=== PATIENT | female | born 1960 | race Caucasian/White ===

== ENCOUNTER → 2019-10-11 10:12 | Outpatient (BNVA) | payer MEDICARE, SELFPAY | PROVIDERS: Family Provider Nurse Practitioner; Visit Provider Nurse Practitioner Family | DX: R05 Cough (principal); J98.8 Other specified respiratory disorders; I70.90 Unspecified atherosclerosis | CPT/HCPCS: 71046; 85025 ==

== ENCOUNTER → 2020-12-03 13:35 | Outpatient (BNVA) | payer MEDICARE, SELFPAY | PROVIDERS: Family Provider Nurse Practitioner; PCP Nurse Practitioner Family; Referring Provider Nurse Practitioner Family; Visit Provider Internal Medicine Cardiovascular Disease | DX: I10 Essential (primary) hypertension (principal) | CPT/HCPCS: 80048 ==

== ENCOUNTER 2021-01-05 13:28 | Outpatient (CLI) | payer MEDICARE, SELFPAY ==
--- NOTE | 2021-01-05 14:00 | MM_ITS ---
WS: [id number] BILATERAL SCREENING DIGITAL MAMMOGRAM WITH CAD HISTORY: Z12.39 - Encounter for other screening for malignant neoplasm of breast COMPARISON: 02/21/2017 and 05/23/2015 Bilateral CC and MLO views submitted. Computer aided detection analyzed. Breast composition: There are scattered areas of fibroglandular density. No suspicious masses, microc alcifications or architectural distortion. MM/[place] [id number] IMPRESSION: BI-RADS: 1-Negative FOLLOW UP: 1 Year Follow-up
== END 2021-01-05 13:29 | disposition home or self-care (01) ==
LOC: RADSHAW 13:33
PROVIDERS: Family Provider Nurse Practitioner; PCP Nurse Practitioner Family; Visit Provider Nurse Practitioner Family
DX: Z12.31 Encounter for screening mammogram for malignant neoplasm of breast (principal)
CPT/HCPCS: 77067

== ENCOUNTER → 2021-01-19 15:54 | Outpatient (BNVA) | payer MEDICARE, SELFPAY | PROVIDERS: Family Provider Nurse Practitioner; PCP Nurse Practitioner Family; Visit Provider Nurse Practitioner Family | DX: R35.0 Frequency of micturition (principal) | CPT/HCPCS: 81000; 87086 ==

== ENCOUNTER 2021-01-27 08:18 | Outpatient (CLI) | payer MEDICARE, SELFPAY ==
--- NOTE | 2021-01-27 08:25 | USCV_ITS ---
Betty Cardenas Age: 60 Gender: F : 1960 Exam Date: 01/27/2021 08:46 Ordering Phys: Helio Recinos MD ([email or web address]) Technologist: Exam Location: [facility] – [place] Indication: htn Aortic Velocity @ SMA (cm/s) 61.1 RIGHT KIDNEY LEFT KIDNEY Velocity (cm/s) Velocity (cm/s) Sys/Singleton Sys/Singleton Resistive Index Resistive Index 127.6 / 40.9 0.68 Proximal Renal Artery 93.4 / 31.1 0.67 126.0 / 45.7 0.64 Mid Renal Artery 73.8 / 22.9 0.69 129.1 / 37.8 0.71 Distal Renal Artery 68.3 / 27.0 0.60 73.8 / 17.0 0.77 Hilar 82.5 / 27.0 0.67 51.7 / 17.8 0.66 Upper Pole 32.0 / 11.0 0.66 30.9 / 9.9 0.68 Mid Pole 41.3 / 11.6 0.72 51.8 / 19.8 0.62 Lower Pole 38.6 / 12.7 0.67 2.10 Renal Aortic Ratio 1.53 Accleration Index (cm/sec2) 542.00 Hilar 686.00 271.00 Upper Pole 172.00 186.00 Mid Pole 220.00 368.00 Lower Pole 223.00 103.6 Kidney Length (mm) 100.1 FINDINGS Normal renal arterial Doppler flow velocities. Normal renal aortic ratios Normal kidney dimensions Reduced acceleration indicis bilaterally CONCLUSIONS 1. No significant renal artery stenosis, based on the Doppler flow velocities and ratios. 2.The abnormal acceleration indicis suggesting renal artery stenosis could be a technical error. 3. Normal kidney dimensions Consider CTA or MRA to further evaluate the renal arteries, if clinically indicated Dr Charo Simpson MD [facility] (Electronically Signed) Final Date: 27 January 2021 12:45 S
--- NOTE | 2021-01-27 08:31 | USCV_ITS ---
Betty Cardenas Age: 60 Gender: F : 1960 Exam Date: 01/27/2021 09:04 Ordering Phys: Helio Recinos MD ([email or web address]) Technologist: Exam Location: [facility] [place] Indication: HTN BP: 150 / 100 HR: 62 Rhythm: Sinus Technical Quality: Adequate MEASUREMENTS (Male / Female) Normal Values 2D ECHO LV Diastolic Diameter PLAX 2.8 cm 4.2 - 5.9 / 3.9 - 5.3 cm LV Systolic Diameter PLAX 1.9 cm IVS Diastolic Thickness 1.3 cm 0.6 - 1.0 / 0.6 - 0.9 cm IVS Systolic Thickness 1.8 cm LVPW Diastolic Thickness 1.3 cm 0.6 - 1.0 / 0.6 - 0.9 cm LVPW Systolic Thickness 1.3 cm LVOT Diameter 2.0 cm LV Ejection Fraction 2D Teich 61.1 % LV Ejection Fraction MOD 2C 75.6 % LV Ejection Fraction 2C AL 74.7 % LA Diameter 3.0 cm LA Width 3.3 cm LA Height 3.9 cm RA Width 2.7 cm RA Height 4.1 cm Aorta at Sinotubular Diameter 2.2 cm DOPPLER AV Peak Velocity 108.0 cm/s LVOT Peak Velocity 77.0 cm/s AV Area Cont Eq vti 2.3 cm squared AV Area Cont Eq pk 2.3 cm squared MV Area PHT 5.0 cm squared Mitral E to A Ratio 0.9 MV E' Velocity 35.0 cm/s Mitral E to MV E' Ratio 7.7 Mitral E to LV E' Lateral Ratio 9.1 Mitral E to LV E' Septal Ratio 6.6 TR Peak Velocity 173.0 cm/s TR Peak Gradient 12.0 mmHg TV Peak E Velocity 87.0 cm/s Right Atrial Pressure 3.0 mmHg Pulmonary Artery Systolic Pressu 15.0 mmHg PV Peak Velocity 48.0 cm/s FINDINGS Left Ventricle Normal left ventricular size and systolic function, EF 73 %. Mild left ventricular hypertrophy. No regional wall motion abnormalities. Grade I/IV diastolic dysfunction (abnormal relaxation filling pattern), normal to mildly elevated filling pressures. Right Ventricle The right ventricle is normal in size and function. Right Atrium The right atrium is normal in size. Left Atrium The left atrium is normal in size. Mitral Valve Thickened mitral valve. Mild mitral annular calcification. Mild mitral valve regurgitation. Aortic Valve Minimally thickened Tricuspid Valve No gross abnormalities noted Pulmonic Valve Pulmonic valve not well visualized. Pericardium Normal pericardium without effusion. Aorta Normal ascending aorta dimension. CONCLUSIONS Normal left ventricular size and systolic function, EF 73 %. Mild left ventricular hypertrophy. No regional wall motion abnormalities. Grade I/IV diastolic dysfunction (abnormal relaxation filling pattern), normal to mildly elevated filling pressures. Minimally thickened aortic and mitral valves. Mild mitral annular calcification. Mild mitral valve regurgitation. There is no pericardial effusion. There are no intracardiac masses. No previous study is available for comparison. Dr Charo Simpson MD [facility] (Electronically Signed) Final Date: 27 January 2021 10:05 S
== END 2021-01-27 08:19 | disposition home or self-care (01) ==
LOC: RAD 08:22
PROVIDERS: PCP Nurse Practitioner Family; Visit Provider Internal Medicine Cardiovascular Disease
DX: I10 Essential (primary) hypertension (principal); I08.0 Rheumatic disorders of both mitral and aortic valves; R93.41 Abnormal radiologic findings on diagnostic imaging of renal pelvis, ureter, or bladder
CPT/HCPCS: 93306; 93975

== ENCOUNTER 2021-03-16 20:00 | Outpatient (CLI) | payer MEDICARE, SELFPAY | END 2021-03-16 20:01 | disposition home or self-care (01) | LOC: SLEEP 03-17 10:31 | PROVIDERS: PCP Nurse Practitioner Family; Visit Provider Anesthesiology Pain Medicine | DX: G47.33 Obstructive sleep apnea (adult) (pediatric) (principal) | CPT/HCPCS: 95810 ==

== ENCOUNTER → 2021-10-20 11:22 | Outpatient (BNVA) | payer MEDICARE, SELFPAY | PROVIDERS: PCP Nurse Practitioner Family; Visit Provider Nurse Practitioner Family | DX: I10 Essential (primary) hypertension (principal); E03.8 Other specified hypothyroidism | CPT/HCPCS: 80053; 80061; 82306; 82607; 83721; 84443; 85025 ==

== ENCOUNTER → 2022-03-24 11:59 | Outpatient (BNVA) | payer MEDICARE, SELFPAY | PROVIDERS: PCP Nurse Practitioner Family; Visit Provider Nurse Practitioner Family | DX: M54.9 Dorsalgia, unspecified (principal); R10.9 Unspecified abdominal pain; R31.9 Hematuria, unspecified | CPT/HCPCS: 74018; 80053; 81000; 85025 ==

== ENCOUNTER 2022-04-24 08:01 | Emergency (ER) | payer MEDICARE, SELFPAY ==
[2022-04-24 08:05] VITALS: BP 177/117; PULSE 94; RESP 16; TEMP 36.7; O2SAT 97; BMI 26.9
--- NOTE | 2022-04-24 08:05 | W.ED.NAVMDI ---
HPI - Nausea/Vomiting/Diarrhea General: Chief complaint: Nausea/Vomiting/Diarrhea Stated complaint: throwing up, really sick Time Seen by Provider: 04/24/22 08:05 Source: patient Mode of arrival: ambulatory History of Present Illness: 61-year-old female who presents emergency room with nausea and vomiting. She denies any hematemesis or coffee-ground emesis does complain of intermittent low-grade fever. The worst of the nausea began last night and is progressively worsened throughout the night till this morning. She reports a severe headache and a cough with it as well. It was preceded by rhinorrhea and cold-like symptoms. MD elicited complaint: nausea and vomiting Onset (ago): day(s) (2) Description of vomiting: watery and bilious Associated nausea: Yes Associated abdominal pain: No (Abdominal wall pain after vomiting in the epigastric) Severity: mild Quality: aching (Abdominal wall pain) Exacerbating factors: vomiting Relieving factors: none Associated symtoms: Reports anorexia, malaise, nausea and weakness; Denies altered mental status, anxiety, bloating, change in vision, chest pain, cough, diaphoresis, decreased urine output, dizziness, dysuria, epistaxis, fatigue, fecal incontinence, fevers/chills, headache(s), myalgias, numbness, palpitations, rash, short of breath, syncope, tenesmus or tinnitus Review of Systems Const: Reports: malaise; Denies: fever(s), chills, fatigue or diaphoresis Eyes: Denies: change in vision ENMT: Denies: tinnitus or epistaxis Card: Denies: chest pain, palpitations or syncope GI: Reports: abdominal pain (Epigastric abdominal wall pain), nausea and vomiting; Denies: hematemesis, bloating or fecal incontinence : Denies: flank pain, difficulty voiding, dysuria, urinary frequency or urinary urgency Neuro: Denies: headache(s) or dizziness Psych: Denies: anxiety PFSH ED PFSH: Medical History Adult onset hypothyroidism Depression Diastolic dysfunction Essential hypertension Patient has uncontrolled hypertension GERD (gastroesophageal reflux disease) Surgical History H/O repair of right rotator cuff (~06/2014) History of section History of tubal ligation Family History Other CAD (coronary artery disease) Cancer Chronic kidney disease (CKD) Dementia Diabetes Hyperlipidemia Hypertension Stroke Denies family history of Clotting disorder Anesthesia complication Bleeding disorder Family history of premature coronary artery disease Lung disease Social History Smoking and tobacco status: never smoked Second hand smoke exposure: No Smoking risk assessment/counseling performed?: No Alcohol intake: never Desire information about alcohol rehabilitation?: No Counseling given: No Desire information about substance/drug rehabilitation?: No Counseling given: No Adopted: No Caregiver/support person: No Lives independently: Yes Household members: spouse Housing: House Marital status: service: No History of recent travel: No Current gender identity: Female Physical Exam Const: COMMON NORMALS: no acute distress EXAM LIMITATIONS: no altered mental status GENERAL APPEARANCE: cooperative and comfortable ORIENTATION/CONSCIOUSNESS: Yes awake, Yes oriented to person, Yes oriented to place and Yes oriented to time HENMT: COMMON NORMALS: normocephalic, atraumatic, hearing grossly normal bilaterally, external ears normal, EAC's normal, TM's normal bilaterally, Normal nasal mucous membranes and turbinates present, moist oral mucous membranes and oropharynx normal HEAD & SCALP: normocephalic and atraumatic NOSE: Normal nasal mucous membranes and turbinates present EXTERNAL EAR: Yes external ears normal EXTERNAL AUDITORY CANAL: EAC's normal TYMPANIC MEMBRANE: TM's normal bilaterally Resp: COMMON NORMALS: normal respiratory effort, No retractions, No use of accessory muscles and clear to auscultation bilaterally AUSCULTATION: clear to auscultation bilaterally Cardio: COMMON NORMALS: regular rate, regular rhythm and No murmurs present (Cardio) RATE: regular rate RHYTHM: regular rhythm GI: COMMON NORMALS: Soft to palpation and No hepatosplenomegaly present AUSCULTATION: Yes normoactive bowel sounds PALPATION: Yes Soft to palpation, No Tenderness to palpation present (GI), No Guarding due to palpation present (GI) and Yes No hepatosplenomegaly present Extremity: COMMON NORMALS: normal to inspection, capillary refill normal, no clubbing, cyanosis or edema, no calf tenderness and no pedal edema Neuro: SENSORIUM/ORIENTATION: Yes oriented to person, Yes oriented to place and Yes oriented to time Skin: COMMON NORMALS: no rashes or lesions noted GENERAL SKIN EXAM: no rashes or lesions noted Course Vital Signs: Vital signs: Vital Signs Temperature 98.1 F 04/24/22 08:05 Pulse Rate 78 04/24/22 11:27 Respiratory Rate 22 H 04/24/22 11:27 Blood Pressure 170/88 04/24/22 11:27 Pulse Oximetry 97 04/24/22 11:27 Oxygen Delivery Me thod 04/24/22 10:12 MDM - Nausea/Vomiting/Diarrhea Medical Decision Making Positive for COVID. Reviewed signs symptoms of COVID and expectations of course. Start on Paxlovid give promethazine for nausea and vomiting encouraged p.o. fluids follow-up as needed monitor oxygen sats are sats below 90% at rest return to the emergency room Medical Records I reviewed the patient's medical records. Lab Data I reviewed the patient's lab results. : 04/24/22 08:20 04/24/22 09:58 Laboratory Results WBC 10.1 10^3/uL (4.0-10.0) H 04/24/22 08:20 RBC 5.20 10^6/uL (4.1-5.3) 04/24/22 08:20 Hgb 15.0 g/dL (11.5-15.3) 04/24/22 08:20 Hct 45.4 % (37.0-47.0) 04/24/22 08:20 MCV 87.3 fl (81-99) 04/24/22 08:20 MCH 28.8 pg (28.0-34.0) 04/24/22 08:20 MCHC 33.0 g/dL (30.0-36.0) 04/24/22 08:20 RDW 13.1 % (12.1-15.1) 04/24/22 08:20 Plt Count 270 10^3/cmm (130-400) 04/24/22 08:20 MPV 10.1 fL (7.4-10.4) 04/24/22 08:20 Neut % (Auto) 87.3 % 04/24/22 08:20 Lymph % (Auto) 6.2 % 04/24/22 08:20 Ballard % (Auto) 5.7 % 04/24/22 08:20 Eos % (Auto) 0.1 % 04/24/22 08:20 Baso % (Auto) 0.4 % 04/24/22 08:20 Neut # (Auto) 8.84 10^3/uL (1.8-7.7) H 04/24/22 08:20 Lymph # (Auto) 0.6 10^3/uL (0.8-4.8) L 04/24/22 08:20 Ballard # (Auto) 0.6 10^3/uL (0.2-0.9) 04/24/22 08:20 Eos # (Auto) 0.0 10^3/uL (0.0-0.8) 04/24/22 08:20 Baso # (Auto) 0.0 10^3/uL (0.0-0.1) 04/24/22 08:20 Nucleated RBC % (auto) 0 % 04/24/22 08:20 Nucleated RBCs # 0.0 /100WBC 04/24/22 08:20 Sodium 138 mmol/L (136-145) 04/24/22 09:58 Potassium 3.3 mmol/L (3.5-5.1) L 04/24/22 09:58 Chloride 100 mmol/L (98-107) 04/24/22 09:58 Carbon Dioxide 26 mmol/L (22-29) 04/24/22 09:58 Anion Gap 15.3 (5-19) 04/24/22 09:58 BUN 10 mg/dL (8-23) 04/24/22 09:58 Creatinine 0.7 mg/dL (0.5-0.9) 04/24/22 09:58 GFR Calculation 84.8 mL/min (90-130) L 04/24/22 09:58 Glucose 123 mg/dL (65-115) H 04/24/22 09:58 Calculated Osmolality 286 mOsm/kg (285-295) 04/24/22 09:58 Calcium 8.6 mg/dL (8.5-10.5) 04/24/22 09:58 Total Bilirubin 0.4 mg/dL (0.15-1.2) 04/24/22 09:58 AST 23 U/L (0-32) 04/24/22 09:58 ALT 14 U/L (0-33) 04/24/22 09:58 Alkaline Phosphatase 103 U/L (35-105) 04/24/22 09:58 Total Protein 7.4 g/dL (6.6-8.7) 04/24/22 09:58 Albumin 4.0 g/dL (3.5-5.2) 04/24/22 09:58 Globulin 3.4 g/dL (1.3-4.6) 04/24/22 09:58 Lipase 16 U/L (13-60) 04/24/22 09:58 Urine Color Straw (Yellow) 04/24/22 09:22 Urine Appearance Clear (CLEAR) 04/24/22 09:22 Urine pH 7 (5-7) 04/24/22 09:22 Ur Specific [place] 1.010 (1.005-1.030) 04/24/22 09:22 Urine Protein Trace (Negative) 04/24/22 09:22 Urine Glucose (UA) Norm (Normal) 04/24/22 09:22 Urine Ketones 1+ (Negative) H 04/24/22 09:22 Urine Blood Neg (Negative) 04/24/22 09:22 Urine Nitrate Negative (Negative) 04/24/22 09:22 Urine Bilirubin Neg (Negative) 04/24/22 09:22 Urine Urobilinogen Norm mg/dL (Negative) 04/24/22 09:22 Ur Leukocyte Esterase Negative (Negative) 04/24/22 09:22 Urine RBC None /hpf (0-2) 04/24/22 09:22 Urine WBC Rare /hpf (0-5) 04/24/22 09:22 Ur Squamous Epith Cells None /hpf (0-5) 04/24/22 09:22 Amorphous Sediment Not Reportable 04/24/22 09:22 Urine Bacteria Trace /hpf (NONE) 04/24/22 09:22 Urine Mucus Trace /hpf 04/24/22 09:22 Coronavirus 229E (PCR) Not detected (NOT DETECT) 04/24/22 09:03 SARS-CoV-2 (PCR) Detected (NOT DETECT) A 04/24/22 09:03 Discharge Plan Discharge Patient Disposition: Home Clinical Impression: COVID-19 Condition: Stable Prescriptions: New Paxlovid (EUA) 150 mg x 2- 100 mg tablet See Rx Instructions .ROUTE .COMPLEX Qty: 30 0RF Rx Instructions: take TWO 150 mg tablets of nirmatrelvir with ONE 100 mg tablet of ritonavir twice daily for 5 days promethazine 25 mg tablet 25 mg PO Q6H PRN (Reason: nausea and vomiting) Qty: 20 0RF No Action gabapentin 600 mg tablet 600 mg PO TID citalopram [Celexa] 20 mg tablet 20 mg PO DAILY Qty: 90 1RF levothyroxine 25 mcg capsule 50 mcg PO DAILY Qty: 90 1RF pantoprazole [Protonix] 40 mg tablet,delayed release (DR/EC) 40 mg PO DAILY Qty: 90 1RF nitroglycerin 0.4 mg tablet, sublingual 0.4 mg sublingual Q5M PRN (Reason: chest pain) 30 Days Qty: 30 2RF Rx Instructions: do not exceed 3 doses per episode albuterol sulfate [ProAir HFA] 90 mcg/actuation HFA aerosol inhaler 2 puff INHALATION Q4H PRN (Reason: shortness of breath or wheezing) 7 Days Qty: 6.7 2RF ciprofloxacin HCl [Cipro] 500 mg tablet 500 mg PO BID Qty: 20 0RF rosuvastatin [Crestor] 20 mg tablet 20 mg PO DAILY Qty: 30 5RF cholecalciferol (vitamin D3) 1,250 mcg (50,000 unit) capsule 50,000 unit PO .weekly Qty: 12 1RF amlodipine 5 mg tablet 5 mg PO DAILY Qty: 100 2RF valsartan 160 mg tablet 160 mg PO BID Qty: 90 1RF Discharge Orders: Discharge ED (Routine); Ordered 04/24/22 Ordered By: Darrin Romero Referrals: Mame Heath FNP-C [Primary Care Provider] - Discharge Diet: Clear Liquid Discharge Activity: Increase activity as tolerated Patient Instructions: COVID-19 (Coronavirus Disease 2019) (ED), Opioid Safety Activity Restrictions/Additional Instructions: Monitor your home oxygen sats if consistently below 92% rest return to the emergency room. Coding Level of Care Code ED Platform Material Handling Supervisor for Ayan Fwd Exam Detailed
--- NOTE | 2022-04-24 08:06 | ECG_ITS ---
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 Measurements Intervals [place] Rate: 88 P: 42 WV: 195 QRS: -45 QRSD: 103 T: 36 QT: 313 QTc: 379 Interpretive Statements SINUS RHYTHM POSSIBLE LEFT ATRIAL ENLARGEMENT [-0.1mV P-WAVE IN V1/V2] INDETERMINATE AXIS INCOMPLETE RIGHT BUNDLE BRANCH BLOCK [90+ ms QRS DURATION, TERMINAL R IN V1/V2, 40+ ms S IN I/aVL/V4/V5/V6] INFERIOR MYOCARDIAL INFARCTION , PROBABLY OLD [40+ ms Q WAVE AND/OR ST/T ABNORMALITY IN II/aVF] No previous ECG available for comparison Electronically Signed On 04-25-2022 13:21:13 CDT by Manuel Cheng M.D. [email or web address]
[2022-04-24] MEDS: sodium chloride 0.9% 1,000 ML 999 ML IV (08:28)
[2022-04-24] MEDS: ondansetron 2 mg/ML SDV 2 mL 4 MG IVP (08:28)
[2022-04-24 08:41] LABS: Basophils % 0.4 %; Eosinophils % 0.1 %; Hematocrit 45.4 % (37.0-47.0); Lymphocytes # 0.6 10^3/uL (0.8-4.8); Lymphocytes % 6.2 %; Mean Corpuscular Hemoglobin 28.8 pg (28.0-34.0); Mean Corpuscular Volume 87.3 fl (81-99); Mean Platelet Volume 10.1 fL (7.4-10.4); Monocytes # 0.6 10^3/uL (0.2-0.9); Monocytes % 5.7 %; Neutrophils # 8.84 10^3/uL (1.8-7.7); Neutrophils % 87.3 %; Nucleated Red Blood Cells % 0 %; Platelet Count 270 10^3/cmm (130-400); Red Cell Distribution Width 13.1 % (12.1-15.1); White Blood Count 10.1 10^3/uL (4.0-10.0)
[2022-04-24 09:47] LABS: Add Urine Culture? No; Add Urine Microscopic? YES; Bacteria Urine TRACE /hpf; Bilirubin Urine Neg (Negative); Blood Urine Neg (Negative); Glucose Urine UA Norm (Normal); Ketones Urine 1+ (Negative); Leukocyte Esterase Urine Negative (Negative); Mucus Urine TRACE /hpf; Nitrate Urine Negative (Negative); Protein Urine Trace (Negative); Urine Appearance Clear (CLEAR); Urine Color Straw (Yellow); Urobilinogen Urine Norm (Negative); WBC Urine RARE /hpf (0-5); pH Urine 7 (5-7)
[2022-04-24] MEDS: acetaminophen 500 mg Tablet 1000 MG PO (09:55)
[2022-04-24 09:57] VITALS: BP 170/87; PULSE 93; RESP 21; O2SAT 95
[2022-04-24 10:12] VITALS: PULSE 91; RESP 19; O2SAT 96
[2022-04-24 10:39] LABS: Alanine Aminotransferase 14 U/L (0-33); Alkaline Phosphatase 103 U/L (35-105); Anion Gap 15.3 (5-19); Aspartate Amino Transferase 23 U/L (0-32); Blood Urea Nitrogen 10 mg/dL (8-23); Calcium 8.6 mg/dL (8.5-10.5); Carbon Dioxide 26 mmol/L (22-29); Chloride 100 mmol/L (98-107); Globulin 3.4 g/dL (1.3-4.6); Glomerular Filtration Rate 84.8 mL/min (90-130); Glucose 123 mg/dL (65-115); Lipase 16 U/L (13-60); Osmolality Calculated 286 mOsm/kg (285-295); Potassium 3.3 mmol/L (3.5-5.1); Sodium 138 mmol/L (136-145); Total Bilirubin 0.4 mg/dL (0.15-1.2); Total Protein 7.4 g/dL (6.6-8.7)
[2022-04-24 10:46] LABS: Adenovirus Not Detected (NOT DETECT); Chlamydia Pneumoniae Not Detected (NOT DETECT); Coronavirus 229E,HKU1,NL63,OC4 Not Detected (NOT DETECT); Human Metapneumovirus Not Detected (NOT DETECT); Human Rhinovirus/Enterovirus Not Detected (NOT DETECT); Influenza A Not Detected (NOT DETECT); Influenza A H1 Not Detected (NOT DETECT); Influenza A H1-2009 Not Detected (NOT DETECT); Influenza A H3 Not Detected (NOT DETECT); Influenza B Not Detected (NOT DETECT); Mycoplasma Pneumoniae Not Detected (NOT DETECT); Parainfluenza Virus Type 1 Not Detected (NOT DETECT); Parainfluenza Virus Type 2 Not Detected (NOT DETECT); Parainfluenza Virus Type 3 Not Detected (NOT DETECT); Parainfluenza Virus Type 4 Not Detected (NOT DETECT); Respiratory Syncytial Virus A Not Detected (NOT DETECT); Respiratory Syncytial Virus B Not Detected (NOT DETECT); SARS-COV-2 Detected (NOT DETECT)
[2022-04-24] MEDS: haloperidol inj 5 mg/mL INJ 1 mL 2 MG IVP (11:11)
[2022-04-24] MEDS: ketorolac 30 mg/mL INJ IVP (11:11)
[2022-04-24 11:27] VITALS: BP 170/88; PULSE 78; RESP 22; O2SAT 97
== END 2022-04-24 11:28 | disposition home or self-care (01) ==
PROVIDERS: Emergency Provider Family Medicine; PCP Nurse Practitioner Family
DX: U07.1 COVID-19 (principal); I10 Essential (primary) hypertension
CPT/HCPCS: 36415; 80053; 81001; 83690; 85025; 87635; 93005; 96361; 96374; 96375; 99284; J1630; J1885; J2405; J7030

== ENCOUNTER → 2022-06-16 14:51 | Outpatient (BNVA) | payer MEDICARE, SELFPAY | PROVIDERS: PCP Nurse Practitioner Family; Visit Provider Nurse Practitioner Family | DX: F41.9 Anxiety disorder, unspecified (principal); F32.A Depression, unspecified; K21.9 Gastro-esophageal reflux disease without esophagitis; E03.8 Other specified hypothyroidism; E78.5 Hyperlipidemia, unspecified; W55.51XA Bitten by raccoon, initial encounter; G47.9 Sleep disorder, unspecified; Z12.11 Encounter for screening for malignant neoplasm of colon; Z12.39 Encounter for other screening for malignant neoplasm of breast; E05.90 Thyrotoxicosis, unspecified without thyrotoxic crisis or storm; I10 Essential (primary) hypertension | CPT/HCPCS: 80053; 80061; 83721; 84443; 85025 ==

== ENCOUNTER → 2022-12-08 11:13 | Outpatient (BNVA) | payer OTHER, SELFPAY | PROVIDERS: PCP Nurse Practitioner Family; Visit Provider Nurse Practitioner Family | DX: I10 Essential (primary) hypertension (principal) | CPT/HCPCS: 80053; 80061; 83721; 84443; 85025 ==